=== PATIENT | female | born 1960 | race African-American/Black ===

== ENCOUNTER 2017-12-25 13:00 | Inpatient (IN) | payer MEDICARE ==
[2017-12-25] MEDS: NOREPINEPHRIN PREMIX 250 ML IV ×3 (13:15→23:12)
[2017-12-25 13:27] LABS: BASE EXCESS ABG -14 mmol/L (-3-3); HCO3 ABG 12 mmol/L (21-28); PCO2 ABG 30 mmHg (35-46); PH ABG 7.23 (7.35-7.45); PO2 ABG 87 mmHg (65-108); SAT O2 ABG 94 % (92-99)
[2017-12-25] MEDS ORDERED: DEXTROSE 50% 25 GM / 50ML DISP.SYRIN. IV (13:32)
[2017-12-25] MEDS ORDERED: SODIUM BICARB ADULT 8.4% 50 MEQ/50 ML DISP.SYRIN. (13:36)
[2017-12-25] MEDS ORDERED: MIDAZOLAM HCL/PF 5 MG/5 ML VIAL. (13:37)
[2017-12-25] MEDS ORDERED: ROCURONIUM 50 MG/5 ML VIAL. (13:37)
[2017-12-25 14:13] LABS: POC GLUCOSE 29 mg/dL (70-99)
[2017-12-25 14:13] LABS: POC GLUCOSE 101 mg/dL (70-99)
[2017-12-25 14:16] LABS: FIO2 ABG 28
[2017-12-25] MEDS ORDERED: LIDOCAINE WITH 8.4% SOD BICARB 3 ML DISP.SYRIN. (14:16)
[2017-12-25] MEDS: MIDAZOLAM HCL/PF 5 MG/5 ML VIAL. IV (14:43)
[2017-12-25] MEDS: ROCURONIUM 50 MG/5 ML VIAL. IV (14:45)
[2017-12-25] MEDS: SODIUM BICARB ADULT 8.4% 50 MEQ/50 ML DISP.SYRIN. IV (14:45)
[2017-12-25] MEDS: DEXTROSE 50% 25 GM / 50ML DISP.SYRIN. IV (14:46)
[2017-12-25 14:49] LABS: POC GLUCOSE 71 mg/dL (70-99)
[2017-12-25] MEDS: LIDOCAINE WITH 8.4% SOD BICARB 3 ML DISP.SYRIN. INJ (14:59)
[2017-12-25] MEDS: IV NORMAL SALINE 1000ML BAG 1,000 ML IV ×4 (15:00→18:30)
[2017-12-25 15:14] LABS: BASE EXCESS ABG -13 mmol/L (-3-3); HCO3 ABG 12 mmol/L (21-28); PCO2 ABG 23 mmHg (35-46); PH ABG 7.33 (7.35-7.45); PO2 ABG 152 mmHg (65-108); SAT O2 ABG 99 % (92-99)
[2017-12-25 15:17] LABS: FIO2 ABG 40
[2017-12-25 15:41] LABS: ADD MAN DIFF? NO
[2017-12-25 15:52] LABS: AMMONIA 48 mcmol/L (11-34)
[2017-12-25 15:53] LABS: PARTIAL THROMBOPLASTIN TIME 57 SEC (24-38); PROTHROMBIN TIME PATIENT 94.6 SEC (11.7-14.0)
[2017-12-25] MEDS ORDERED: NOREPINEPHRIN PREMIX 250 ML IV (16:00)
[2017-12-25 16:02] LABS: ANION GAP 32 (6-14); BLOOD UREA NITROGEN 39 mg/dL (7-20); CALCIUM 8.8 mg/dL (8.5-10.1); CARBON DIOXIDE 15 mmol/L (21-32); CHLORIDE 93 mmol/L (98-107); GFR 10.7; GLUCOSE 85 mg/dL (70-99); POTASSIUM 4.8 mmol/L (3.5-5.1); SODIUM 140 mmol/L (136-145)
[2017-12-25 16:05] LABS: BASO % 0 % (0-3); EOS # 0.2 x10^3/uL (0.0-0.7); EOS % 1 % (0-3); HEMATOCRIT 26.4 % (36.0-47.0); HEMOGLOBIN 7.5 g/dL (12.0-15.5); LYMPH # 1.8 x10^3/uL (1.0-4.8); LYMPH % 8 % (24-48); MEAN CORPUSCULAR HEMOGLOBIN 24 pg (25-35); MEAN CORPUSCULAR HGB CONC 29 g/dL (31-37); MEAN CORPUSCULAR VOLUME 83 fL (79-100); MONO # 1.9 x10^3/uL (0.0-1.1); MONO % 8 % (0-9); NEUT # 18.6 x10^3uL (1.8-7.7); NEUT % 83 % (31-73); PLATELET COUNT 339 x10^3/uL (140-400); RED CELL DISTRIBUTION WIDTH 23.1 % (11.5-14.5); WHITE BLOOD COUNT 22.4 x10^3/uL (4.0-11.0)
[2017-12-25 16:14] LABS: INR 13.8 (0.8-1.1)
[2017-12-25 16:20] LABS: ALBUMIN 2.7 g/dL (3.4-5.0); ALK PHOS 154 U/L (46-116); DIRECT BILIRUBIN 1.8 mg/dL (0.0-0.2); MAGNESIUM 2.1 mg/dL (1.8-2.4); PHOSPHORUS 6.8 mg/dL (2.6-4.7); TOTAL BILIRUBIN 2.3 mg/dL (0.2-1.0); TOTAL PROTEIN 6.5 g/dL (6.4-8.2)
[2017-12-25 16:52] LABS: LACTIC ACID 17.9 mmol/L (0.4-2.0)
[2017-12-25 17:01] LABS: ALT (SGPT) 1542 U/L (14-59); AST (SGOT) 6117 U/L (15-37)
[2017-12-25] MEDS: PHYTONADIONE (VIT K1) IV 10 MG in IV DEXTROSE 5% 50 ML IV (17:34)
[2017-12-25] MEDS: PIPERACILLIN/TAZOBACTAM 2.25 GM in IV NORMAL SALINE 50ML 50 ML IV ×2 (17:35→22:59)
[2017-12-25] MEDS: AMINO AC 3%/ELECTROLYTE/GLYCER 1,000 ML IV (17:35)
[2017-12-25] MEDS: MILRINONE 20MG/100ML PREMIX 100 ML IV (17:39)
[2017-12-25] MEDS: VASOPRESSIN 40 UNIT in IV DEXTROSE 5% 100 ML IV (18:07)
[2017-12-25] MEDS: DAPTOMYCIN IV (21:38)
[2017-12-25] MEDS: NORMAL SALINE IV (21:38)
[2017-12-25 21:47] LABS: LACTIC ACID 9.4 mmol/L (0.4-2.0)
[2017-12-25] MEDS: LACTULOSE 20 GM/30 ML SOLUTION. PR (22:59)
[2017-12-25 23:18] LABS: IMMEDIATE SPIN CROSSMATCH 1
[2017-12-26 01:03] LABS: POC GLUCOSE 51 mg/dL (70-99)
[2017-12-26] MEDS: DEXTROSE 50% 25 GM / 50ML DISP.SYRIN. IV (01:04)
[2017-12-26] MEDS: PHENYLEPHRINE INJ 80 MG in IV NORMAL SALINE 250ML 250 ML IV ×4 (01:04→21:56)
[2017-12-26 01:12] LABS: MRSA BY PCR Negative (Negative)
[2017-12-26 01:22] LABS: POC GLUCOSE 78 mg/dL (70-99)
[2017-12-26 02:49] LABS: LACTIC ACID 14.1 mmol/L (0.4-2.0)
[2017-12-26] MEDS: NOREPINEPHRIN PREMIX 250 ML IV ×2 (03:22→08:13)
[2017-12-26] MEDS: PIPERACILLIN/TAZOBACTAM 2.25 GM in IV NORMAL SALINE 50ML 50 ML IV ×3 (05:52→23:55)
[2017-12-26] MEDS ORDERED: MIDAZOLAM 100 MG/100 ML IV (06:00)
[2017-12-26 06:05] LABS: POC GLUCOSE 54 mg/dL (70-99)
[2017-12-26 06:13] LABS: ADD MAN DIFF? NO
[2017-12-26 06:21] LABS: BASO % 0 % (0-3); EOS # 0.1 x10^3/uL (0.0-0.7); EOS % 1 % (0-3); HEMATOCRIT 31.4 % (36.0-47.0); HEMOGLOBIN 9.1 g/dL (12.0-15.5); LYMPH # 1.7 x10^3/uL (1.0-4.8); LYMPH % 8 % (24-48); MEAN CORPUSCULAR HEMOGLOBIN 25 pg (25-35); MEAN CORPUSCULAR HGB CONC 29 g/dL (31-37); MEAN CORPUSCULAR VOLUME 85 fL (79-100); MONO # 1.1 x10^3/uL (0.0-1.1); MONO % 5 % (0-9); NEUT # 18.4 x10^3uL (1.8-7.7); NEUT % 86 % (31-73); PLATELET COUNT 270 x10^3/uL (140-400); RED CELL DISTRIBUTION WIDTH 21.6 % (11.5-14.5); WHITE BLOOD COUNT 21.4 x10^3/uL (4.0-11.0)
[2017-12-26] MEDS: AMINO AC 3%/ELECTROLYTE/GLYCER 1,000 ML IV ×2 (06:23→18:00)
[2017-12-26 06:30] LABS: ANION GAP 31 (6-14); BLOOD UREA NITROGEN 30 mg/dL (7-20); CALCIUM 8.9 mg/dL (8.5-10.1); CARBON DIOXIDE 14 mmol/L (21-32); CHLORIDE 96 mmol/L (98-107); CREATININE 3.7 mg/dL (0.6-1.0); GFR 15.2; GLUCOSE 59 mg/dL (70-99); POTASSIUM 4.5 mmol/L (3.5-5.1); SODIUM 141 mmol/L (136-145)
[2017-12-26] MEDS ORDERED: MEPERIDINE PF 25 MG/ML VIAL. IV (06:30)
[2017-12-26] MEDS: ACETAMINOPHEN 650 MG SUPP.RECT. PR ×3 (06:30→18:30)
[2017-12-26] MEDS ORDERED: VECURONIUM BOLUS 10 MG VIAL. IV (06:30)
[2017-12-26] MEDS ORDERED: AMIODARONE 150 MG/3 ML VIAL (07:00)
[2017-12-26] MEDS ORDERED: EPINEPHrine SYRINGE 1 MG/10 ML SYRINGE (07:00)
[2017-12-26] MEDS ORDERED: SODIUM BICARB ADULT 8.4% 50 MEQ/50 ML DISP.SYRIN. (07:00)
[2017-12-26] MEDS: AMIODARONE 900 MG in IV DEXTROSE 5% 500 ML IV (07:22)
[2017-12-26 07:26] LABS: LACTIC ACID 18.3 mmol/L (0.4-2.0)
[2017-12-26 07:34] LABS: AMYLASE 562 U/L (25-115)
[2017-12-26 07:37] LABS: TROPONINI 1.059 ng/mL (0.000-0.055)
[2017-12-26 07:43] LABS: CKMB INDEX 11.2 % (0-4); CKMB MASS 9.4 ng/mL (0.0-3.6); CREATINE KINASE 84 U/L (26-192)
[2017-12-26] MEDS: VASOPRESSIN 40 UNIT in IV DEXTROSE 5% 100 ML IV ×2 (08:13→20:30)
[2017-12-26 08:35] LABS: BASE EXCESS ABG -18 mmol/L (-3-3); HCO3 ABG 10 mmol/L (21-28); PCO2 ABG 32 mmHg (35-46); PO2 ABG 273 mmHg (65-108); SAT O2 ABG 99 % (92-99)
[2017-12-26 08:48] LABS: PH ABG 7.11 (7.35-7.45)
[2017-12-26 08:52] LABS: FIO2 ABG 100
[2017-12-26 08:57] LABS: ANION GAP 31 (6-14); BLOOD UREA NITROGEN 29 mg/dL (7-20); CALCIUM 8.2 mg/dL (8.5-10.1); CARBON DIOXIDE 12 mmol/L (21-32); CHLORIDE 98 mmol/L (98-107); CREATININE 3.7 mg/dL (0.6-1.0); GFR 15.2; GLUCOSE 157 mg/dL (70-99); MAGNESIUM 1.9 mg/dL (1.8-2.4); PHOSPHORUS 5.8 mg/dL (2.6-4.7); POTASSIUM 4.2 mmol/L (3.5-5.1); SODIUM 141 mmol/L (136-145)
[2017-12-26 09:00] LABS: IONIZED CALCIUM 0.91 mmol/L (1.13-1.32)
[2017-12-26] MEDS: LACTULOSE 20 GM/30 ML SOLUTION. PR ×2 (09:00→21:00)
[2017-12-26] MEDS: FAMOTIDINE 20 MG/2 ML VIAL IVP ×2 (09:00→20:57)
[2017-12-26 09:04] LABS: ALBUMIN 2.1 g/dL (3.4-5.0); ALK PHOS 161 U/L (46-116); DIRECT BILIRUBIN 2.2 mg/dL (0.0-0.2); LIPASE 916 U/L (73-393); TOTAL BILIRUBIN 2.9 mg/dL (0.2-1.0); TOTAL PROTEIN 5.7 g/dL (6.4-8.2)
[2017-12-26 09:18] LABS: ALT (SGPT) 1344 U/L (14-59); AST (SGOT) 4884 U/L (15-37)
[2017-12-26] MEDS: SODIUM BICARBONATE VIAL 150 MEQ in IV DEXTROSE 5% 1,000 ML IV (09:52)
[2017-12-26] MEDS: IV NORMAL SALINE 1000ML BAG 1,000 ML IV (09:53)
[2017-12-26 10:22] LABS: POC GLUCOSE 106 mg/dL (70-99)
[2017-12-26] MEDS: MILRINONE 20MG/100ML PREMIX 100 ML IV (10:52)
[2017-12-26] MEDS: ACETAMINOPHEN 650 MG/20.3 ML SOLUTION. NG ×2 (12:00→18:00)
[2017-12-26] MEDS ORDERED: IV NORMAL SALINE 1000ML BAG 1,000 ML IV ×2 (12:14)
[2017-12-26] MEDS ORDERED: ALBUMIN HUMAN 25% 200 ML IV (12:15)
[2017-12-26] MEDS ORDERED: diphenhydrAMINE 50 MG/ML VIAL IV ×2 (12:15)
[2017-12-26] MEDS ORDERED: DIALYSIS PATIENT. MC (12:15)
[2017-12-26] MEDS ORDERED: ACETAMINOPHEN 500 MG TABLET PO (12:15)
[2017-12-26] MEDS ORDERED: DEXTROSE 50% 25 GM / 50ML DISP.SYRIN. IV (12:30)
[2017-12-26] MEDS: NOREPINEPHRINE VIAL 16 MG in IV NORMAL SALINE 250ML 250 ML IV ×2 (12:36→20:31)
[2017-12-26 12:37] LABS: FIBRINOGEN 451 mg/dL (200-440); PARTIAL THROMBOPLASTIN TIME 47 SEC (24-38)
[2017-12-26 12:39] LABS: AMMONIA 42 mcmol/L (11-34)
[2017-12-26 12:39] LABS: ANION GAP 34 (6-14); BLOOD UREA NITROGEN 31 mg/dL (7-20); CALCIUM 8.3 mg/dL (8.5-10.1); CHLORIDE 97 mmol/L (98-107); CREATININE 3.7 mg/dL (0.6-1.0); GFR 15.2; GLUCOSE 132 mg/dL (70-99); PHOSPHORUS 5.8 mg/dL (2.6-4.7); POTASSIUM 3.8 mmol/L (3.5-5.1); PROTHROMBIN TIME PATIENT 89.4 SEC (11.7-14.0); SODIUM 141 mmol/L (136-145)
[2017-12-26 12:41] LABS: CARBON DIOXIDE 10 mmol/L (21-32)
[2017-12-26 13:01] LABS: D-DIMER 4.92 ug/mlFEU (0.00-0.50)
[2017-12-26 13:02] LABS: INR 12.8 (0.8-1.1)
[2017-12-26 13:03] LABS: PLATELET COUNT 213 x10^3/uL (140-400)
[2017-12-26 14:31] LABS: HEMATOCRIT 27.3 % (36.0-47.0); MEAN CORPUSCULAR HEMOGLOBIN 25 pg (25-35); MEAN CORPUSCULAR HGB CONC 29 g/dL (31-37); MEAN CORPUSCULAR VOLUME 85 fL (79-100); PLATELET COUNT 157 x10^3/uL (140-400); RED BLOOD COUNT 3.22 x10^6/uL (3.50-5.40); RED CELL DISTRIBUTION WIDTH 21.7 % (11.5-14.5); WHITE BLOOD COUNT 21.5 x10^3/uL (4.0-11.0)
[2017-12-26 14:39] LABS: PARTIAL THROMBOPLASTIN TIME 47 SEC (24-38)
[2017-12-26 14:40] LABS: PROTHROMBIN TIME PATIENT 78.6 SEC (11.7-14.0)
[2017-12-26 14:44] LABS: INR 10.8 (0.8-1.1)
[2017-12-26 14:59] LABS: LACTIC ACID 14.2 mmol/L (0.4-2.0)
[2017-12-26 15:33] LABS: HEP B SURFACE ABDY Non Reactive (.); HEP B SURFACE AG Negative (Negative)
[2017-12-26] MEDS ORDERED: INSULIN ASPART 300 UNITS/3 ML INSULN.PEN SQ (17:00)
[2017-12-26 17:33] LABS: ANION GAP 31 (6-14); BLOOD UREA NITROGEN 23 mg/dL (7-20); CALCIUM 7.8 mg/dL (8.5-10.1); CARBON DIOXIDE 13 mmol/L (21-32); CHLORIDE 95 mmol/L (98-107); CREATININE 2.9 mg/dL (0.6-1.0); GFR 20.1; GLUCOSE 96 mg/dL (70-99); POTASSIUM 3.9 mmol/L (3.5-5.1); SODIUM 139 mmol/L (136-145)
[2017-12-26 17:37] LABS: MAGNESIUM 1.8 mg/dL (1.8-2.4); PHOSPHORUS 4.4 mg/dL (2.6-4.7)
[2017-12-26] MEDS: INSULIN ASPART 300 UNITS/3 ML INSULN.PEN SQ (18:00)
[2017-12-26] MEDS: PHYTONADIONE (VIT K1) IV 10 MG in IV DEXTROSE 5% 50 ML IV (19:36)
[2017-12-26] MEDS: MIDAZOLAM 100MG/100ML PREMIX 100 ML IV (20:31)
[2017-12-26 23:31] LABS: ANION GAP 33 (6-14); BLOOD UREA NITROGEN 24 mg/dL (7-20); CALCIUM 7.5 mg/dL (8.5-10.1); CARBON DIOXIDE 13 mmol/L (21-32); CHLORIDE 96 mmol/L (98-107); CREATININE 3.1 mg/dL (0.6-1.0); GFR 18.6; GLUCOSE 62 mg/dL (70-99); POTASSIUM 4.2 mmol/L (3.5-5.1); SODIUM 142 mmol/L (136-145)
[2017-12-26 23:35] LABS: MAGNESIUM 1.9 mg/dL (1.8-2.4); PHOSPHORUS 5.1 mg/dL (2.6-4.7)
[2017-12-27 00:12] LABS: HEMATOCRIT 27.8 % (36.0-47.0); HEMOGLOBIN 7.8 g/dL (12.0-15.5); MEAN CORPUSCULAR HEMOGLOBIN 25 pg (25-35); MEAN CORPUSCULAR HGB CONC 28 g/dL (31-37); MEAN CORPUSCULAR VOLUME 89 fL (79-100); PLATELET COUNT 154 x10^3/uL (140-400); RED BLOOD COUNT 3.12 x10^6/uL (3.50-5.40); RED CELL DISTRIBUTION WIDTH 21.7 % (11.5-14.5); WHITE BLOOD COUNT 22.8 x10^3/uL (4.0-11.0)
[2017-12-27] MEDS: ACETAMINOPHEN 650 MG SUPP.RECT. PR (00:15)
[2017-12-27] MEDS: DEXTROSE 50% 25 GM / 50ML DISP.SYRIN. IV ×3 (00:19→05:58)
[2017-12-27 00:23] LABS: PARTIAL THROMBOPLASTIN TIME 47 SEC (24-38); PROTHROMBIN TIME PATIENT 49.7 SEC (11.7-14.0)
[2017-12-27 00:25] LABS: BASE EXCESS COOX -20 mmol/L (-3-3); BODY TEMP COOX 95.1 DEG; CARBON MONOXIDE 1.2 % (0.0-1.9); CORRECTED PCO2 COOX 24 mmHg; CORRECTED PH COOX 7.12; CORRECTED PO2 COOX 68 mmHg; HCO3 COOX 8 mmol/L (21-28); METHEMOGLOBIN 0.1 % (0.0-1.9); OXYHEMOGLOBIN 86.2 %; PCO2 COOX 26 mmHg (35-46); PO2 COOX 77 mmHg (65-108); SAT O2 COOX 87 % (92-99); TOTAL HEMOGLOBIN 8.5 g/dL
[2017-12-27] MEDS: PHENYLEPHRINE INJ 80 MG in IV NORMAL SALINE 250ML 250 ML IV ×3 (00:38→09:22)
[2017-12-27] MEDS: SODIUM BICARBONATE VIAL 150 MEQ in IV DEXTROSE 5% 1,000 ML IV (00:53)
[2017-12-27 01:02] LABS: POC GLUCOSE 36 mg/dL (70-99)
[2017-12-27 01:10] LABS: POC GLUCOSE 134 mg/dL (70-99)
[2017-12-27 01:10] LABS: POC GLUCOSE 28 mg/dL (70-99)
[2017-12-27] MEDS: VASOPRESSIN 40 UNIT in IV DEXTROSE 5% 100 ML IV (01:27)
[2017-12-27 02:17] LABS: POC GLUCOSE 96 mg/dL (70-99)
[2017-12-27 04:09] LABS: HEMATOCRIT 27.5 % (36.0-47.0); HEMOGLOBIN 7.6 g/dL (12.0-15.5); MEAN CORPUSCULAR HEMOGLOBIN 25 pg (25-35); MEAN CORPUSCULAR HGB CONC 28 g/dL (31-37); MEAN CORPUSCULAR VOLUME 92 fL (79-100); PLATELET COUNT 140 x10^3/uL (140-400); RED CELL DISTRIBUTION WIDTH 21.7 % (11.5-14.5); WHITE BLOOD COUNT 23.2 x10^3/uL (4.0-11.0)
[2017-12-27 04:22] LABS: PARTIAL THROMBOPLASTIN TIME 49 SEC (24-38); PROTHROMBIN TIME PATIENT 57.2 SEC (11.7-14.0)
[2017-12-27 04:29] LABS: INR 7.2 (0.8-1.1)
[2017-12-27 04:41] LABS: IMMEDIATE SPIN CROSSMATCH 1 2
[2017-12-27 04:42] LABS: LACTIC ACID 29.6 mmol/L (0.4-2.0)
[2017-12-27 04:45] LABS: ANION GAP 38 (6-14); BLOOD UREA NITROGEN 25 mg/dL (7-20); CALCIUM 7.9 mg/dL (8.5-10.1); CHLORIDE 94 mmol/L (98-107); CREATININE 3.1 mg/dL (0.6-1.0); GFR 18.6; GLUCOSE 80 mg/dL (70-99); MAGNESIUM 1.9 mg/dL (1.8-2.4); PHOSPHORUS 6.5 mg/dL (2.6-4.7); POTASSIUM 4.2 mmol/L (3.5-5.1); SODIUM 139 mmol/L (136-145)
[2017-12-27 04:48] LABS: CARBON DIOXIDE 7 mmol/L (21-32)
[2017-12-27] MEDS: AMIODARONE 900 MG in IV DEXTROSE 5% 500 ML IV (04:57)
[2017-12-27 05:18] LABS: BASE EXCESS ABG -25 mmol/L (-3-3); BODY TEMP ABG 91.1 DEG; CORRECTED PCO2 ABG 21 mmHg; CORRECTED PH ABG 6.99; CORRECTED PO2 ABG 99 mmHg; HCO3 ABG 5 mmol/L (21-28); PCO2 ABG 25 mmHg (35-46); PO2 ABG 123 mmHg (65-108); SAT O2 ABG 95 % (92-99)
[2017-12-27 05:29] LABS: FIO2 ABG 100; PH ABG 6.94 (7.35-7.45)
[2017-12-27] MEDS: SODIUM BICARB ADULT 8.4% 50 MEQ/50 ML DISP.SYRIN. IV ×2 (05:41)
[2017-12-27] MEDS: PIPERACILLIN/TAZOBACTAM 2.25 GM in IV NORMAL SALINE 50ML 50 ML IV (05:45)
[2017-12-27] MEDS: ACETAMINOPHEN 650 MG/20.3 ML SOLUTION. NG ×2 (05:52)
[2017-12-27] MEDS: SODIUM BICARBONATE IV (05:52)
[2017-12-27] MEDS: DEXTROSE 5% IV (05:52)
[2017-12-27] MEDS: AMINO AC 3%/ELECTROLYTE/GLYCER 1,000 ML IV (05:52)
[2017-12-27 05:58] LABS: POC GLUCOSE 56 mg/dL (70-99)
[2017-12-27] MEDS: INSULIN ASPART 300 UNITS/3 ML INSULN.PEN SQ ×2 (06:00)
[2017-12-27 06:26] LABS: POC GLUCOSE 99 mg/dL (70-99)
[2017-12-27] MEDS ORDERED: ACETAMINOPHEN 650 MG SUPP.RECT. PR (06:30)
[2017-12-27] MEDS ORDERED: ACETAMINOPHEN 650 MG/20.3 ML SOLUTION. NG (06:30)
[2017-12-27 08:10] LABS: POC GLUCOSE 73 mg/dL (70-99)
[2017-12-27] MEDS: LACTULOSE 20 GM/30 ML SOLUTION. PR (08:16)
[2017-12-27] MEDS: NOREPINEPHRINE VIAL 16 MG in IV NORMAL SALINE 250ML 250 ML IV (08:16)
[2017-12-27] MEDS: FAMOTIDINE 20 MG/2 ML VIAL IVP (08:19)
[2017-12-27] MEDS: MINERAL OIL/PETROLATUM,WHITE OPHTH OINT 3.5GM TUBE. OU (09:02)
[2017-12-27] MEDS ORDERED: SODIUM BICARB ADULT 8.4% 50 MEQ/50 ML DISP.SYRIN. (12:00)
[2017-12-27] MEDS ORDERED: EPINEPHrine SYRINGE 1 MG/10 ML SYRINGE (12:00)
[2017-12-27] MEDS ORDERED: CHLORHEXIDINE 0.12% 15 ML MOUTHWASH. MM (21:00)
[2017-12-28] MEDS ORDERED: ELECTROLYTE (ICU) PROTOCOL. MC (06:30)
[2017-12-28] MEDS ORDERED: METOPROLOL TART IMMED RELEASE 25 MG TABLET. PO (09:00)
[2017-12-28] MEDS ORDERED: FAMOTIDINE 20 MG/2 ML VIAL IVP (09:00)
== END 2017-12-27 15:50 | disposition expired | DRG 871 ==
LOC: 1 WEST ICU 13:00
PROC: 5A1945Z Respiratory Ventilation, 24-96 Consecutive Hours (ICD-10-PCS; principal; 2017-12-25)
PROC: 0BH17EZ Insertion of Endotracheal Airway into Trachea, Via Natural or Artificial Opening (ICD-10-PCS; 2017-12-25)
PROC: 05HM33Z Insertion of Infusion Device into Right Internal Jugular Vein, Percutaneous Approach (ICD-10-PCS; 2017-12-25)
PROC: B543ZZA Ultrasonography of Right Jugular Veins, Guidance (ICD-10-PCS; 2017-12-25)
PROC: 04HY32Z Insertion of Monitoring Device into Lower Artery, Percutaneous Approach (ICD-10-PCS; 2017-12-25)
PROC: 30233L1 Transfusion of Nonautologous Fresh Plasma into Peripheral Vein, Percutaneous Approach (ICD-10-PCS; 2017-12-25)
PROC: 30233N1 Transfusion of Nonautologous Red Blood Cells into Peripheral Vein, Percutaneous Approach (ICD-10-PCS; 2017-12-25)
PROC: 30233K1 Transfusion of Nonautologous Frozen Plasma into Peripheral Vein, Percutaneous Approach (ICD-10-PCS; 2017-12-25)
PROC: 5A12012 Performance of Cardiac Output, Single, Manual (ICD-10-PCS; 2017-12-26)
DX: A41.9 Sepsis, unspecified organism (principal); G92 Toxic encephalopathy; R57.0 Cardiogenic shock; K72.00 Acute and subacute hepatic failure without coma; J96.20 Acute and chronic respiratory failure, unspecified whether with hypoxia or hypercapnia; I47.2 Ventricular tachycardia; E44.0 Moderate protein-calorie malnutrition; D68.9 Coagulation defect, unspecified; N18.6 End stage renal disease; E11.22 Type 2 diabetes mellitus with diabetic chronic kidney disease; I50.43 Acute on chronic combined systolic (congestive) and diastolic (congestive) heart failure; I13.2 Hypertensive heart and chronic kidney disease with heart failure and with stage 5 chronic kidney disease, or end stage renal disease; N39.0 Urinary tract infection, site not specified; I42.9 Cardiomyopathy, unspecified; I49.01 Ventricular fibrillation; I48.91 Unspecified atrial fibrillation; G51.0 Bell's palsy; E66.01 Morbid (severe) obesity due to excess calories; F32.9 Major depressive disorder, single episode, unspecified; Z99.2 Dependence on renal dialysis; G47.33 Obstructive sleep apnea (adult) (pediatric); K57.90 Diverticulosis of intestine, part unspecified, without perforation or abscess without bleeding; M19.90 Unspecified osteoarthritis, unspecified site; M79.7 Fibromyalgia; D64.9 Anemia, unspecified; E78.5 Hyperlipidemia, unspecified; F41.9 Anxiety disorder, unspecified; E83.59 Other disorders of calcium metabolism; G47.00 Insomnia, unspecified; I25.10 Atherosclerotic heart disease of native coronary artery without angina pectoris; K21.9 Gastro-esophageal reflux disease without esophagitis; Z51.5 Encounter for palliative care; Z90.49 Acquired absence of other specified parts of digestive tract; Z79.01 Long term (current) use of anticoagulants; Z79.4 Long term (current) use of insulin; Z82.49 Family history of ischemic heart disease and other diseases of the circulatory system; Z88.6 Allergy status to analgesic agent; Z88.5 Allergy status to narcotic agent; Z88.8 Allergy status to other drugs, medicaments and biological substances; Z95.810 Presence of automatic (implantable) cardiac defibrillator
CPT/HCPCS: 36140; 36415; 36556; 36600; 71045; 76937; 80048; 80076; 82140; 82150; 82310; 82553; 82805; 82962; 83605; 83690; 83735; 84100; 84484; 85025; 85027; 85049; 85379; 85384; 85610; 85730; 86706; 86850; 86900; 86901; 86920; 86927; 87040; 87340; 87641; 93005; 93306; 94002; 94003; C1892; C1894; J0171; J0282; J0878; J1644; J1815; J2250; J2260; J2543; J3430; J3490; J7030; J7042; J7050; P9016; P9017; S0028